=== PATIENT | female | born 1970 | race Caucasian/White ===

== ENCOUNTER → 2018-11-21 | Outpatient (REF) ==
[~2018-11-21] MED LIST: IMITREX100 MG; VITAMIND3 5000 PO; ZESTRIL 10MG10 MG PO
== END ==
LOC: ZLAB.WCH 16:20
DX: Z01.89 Encounter for other specified special examinations (principal)

== ENCOUNTER → 2018-12-24 | Outpatient (CLI) | payer BC ==
[~2018-12-24] VITALS: Ht 162.6 cm; Wt 93.4 kg
[2018-12-24 17:03] VITALS: BP 136/60; PULSE 68
== END ==
LOC: LIGHT 10:05
DX: Z98.84 Bariatric surgery status (principal); E66.01 Morbid (severe) obesity due to excess calories; Z68.35 Body mass index [BMI] 35.0-35.9, adult; Z71.3 Dietary counseling and surveillance
CPT/HCPCS: G0463

== ENCOUNTER → 2019-04-29 | Outpatient (CLI) | payer BC ==
[~2019-04-29] VITALS: Ht 162.6 cm; Wt 99.8 kg
[2019-04-29 16:18] VITALS: BP 126/68; PULSE 64
== END ==
LOC: LIGHT 02-04 11:11
DX: Z98.84 Bariatric surgery status (principal); E66.9 Obesity, unspecified; Z68.37 Body mass index [BMI] 37.0-37.9, adult; Z71.3 Dietary counseling and surveillance
CPT/HCPCS: G0463

== ENCOUNTER → 2019-05-27 | Outpatient (CLI) | payer BC ==
[~2019-05-27] VITALS: Ht 162.6 cm; Wt 101.2 kg
[2019-05-27 15:19] VITALS: BP 132/88; PULSE 68
== END ==
LOC: LIGHT 13:43
DX: Z98.84 Bariatric surgery status (principal); E66.9 Obesity, unspecified; Z68.38 Body mass index [BMI] 38.0-38.9, adult; Z71.3 Dietary counseling and surveillance
CPT/HCPCS: G0463